=== PATIENT | female | born 1940 | race Caucasian/White ===

== ENCOUNTER 2022-05-10 00:34 | Inpatient (IN) | payer OTHER ==
[~2022-05-10] VITALS: Ht 149.9 cm; Wt 53.5 kg
[2022-05-10 00:38] VITALS: BP 121/58
--- NOTE | 2022-05-10 00:38 | NUR ---
[facility] TO ER BED 02.
[2022-05-10] MEDS ORDERED: NACL 0.9% 1,000 ML IV ONE (00:45)
[2022-05-10] MEDS ORDERED: ACETAMINOPHEN 325 MG TAB PO ONE (00:45)
[2022-05-10] MEDS ORDERED: ACETAMINOPHEN 650 MG SUPP RC ONE ×2 (00:47→00:50)
[2022-05-10 01:06] LABS: BASOPHILS % (AUTO) 0.2 % (0.0-2.0); EOSINOPHILS % (AUTO) 0.1 % (0.0-4.0); HEMATOCRIT 34.3 % (36-48); HEMOGLOBIN 11.6 g/dL (12.0-16.0); LYMPHOCYTES % (AUTO) 27.6 % (20.5-51.1); MEAN CORPUSCULAR HEMOGLOBIN 31 pg (27-31); MEAN CORPUSCULAR HGB CONC 34 g/dL (33-37); MEAN CORPUSCULAR VOLUME 91.5 fL (80-94); MONOCYTES # (AUTO) 0.5 K/uL (0.8-1.0); MONOCYTES % (AUTO) 6.3 % (1.7-9.3); NEUTROPHILS # (AUTO) 4.9 K/uL (1.8-7.7); NEUTROPHILS % (AUTO) 65.8 % (42.2-75.2); PLATELET COUNT (AUTO) 114 K/uL (140-450); RED BLOOD CELL COUNT(AUTO) 3.75 MIL/uL (4.20-5.40); RED CELL DISTRIBUTION WIDTH 13.1 % (11.6-13.7); WHITE BLOOD COUNT (AUTO) 7.4 K/uL (4.8-10.8)
[2022-05-10 01:20] LABS: ALBUMIN 2.5 g/dL (3.4-5.0); ANION GAP 5.6 (8-16); ASPARTATE AMINOTRANSFERASE 31 U/L (15-37); CARBON DIOXIDE 30.5 mmol/L (21-32); CHLORIDE 103 mmol/L (98-107); CREATININE 0.8 mg/dL (0.6-1.3); GLUCOSE 136 mg/dL (74-106); POTASSIUM 4.1 mmol/L (3.5-5.1); SODIUM SERUM 135 mmol/L (136-145); TOTAL BILIRUBIN 0.5 mg/dL (0.0-1.0); UREA NITROGEN, BLOOD 15 mg/dL (7-18)
[2022-05-10 01:27] LABS: APPEARANCE,URINE CLEAR (CLEAR); BILIRUBIN,URINE NEGATIVE (NEGATIVE); BLOOD, URINE TRACE-I (NEGATIVE); COLOR,URINE YELLOW (YELLOW); LEUKOCYTE ESTERASE ,URINE NEGATIVE (NEGATIVE); NITRITE, URINE NEGATIVE (NEGATIVE); UGLUCOSE NEGATIVE (NEGATIVE)
[2022-05-10 01:31] LABS: RBC,URINE 0-5 /HPF (0-5); WBC,URINE 0-5 /HPF (0-5)
[2022-05-10] MEDS ORDERED: cefTRIAXone 1,000 MG VIAL ONE (01:38)
[2022-05-10] MEDS ORDERED: MORPHINE SULFATE 2 MG/ML SYR IVP PRN ×2 (01:50→07:40)
[2022-05-10 02:00] LABS: PROTHROMBIN TIME 11.3 secs (10.8-13.4)
[2022-05-10] MEDS ORDERED: GABA400C PO (02:40)
[2022-05-10] MEDS ORDERED: SYN.1 PO (02:40)
[2022-05-10] MEDS ORDERED: FLUO10CA21 PO (02:40)
--- NOTE | 2022-05-10 03:00 | NUR ---
RECEIVED PT FROM ER NURSE VIA GUILLERMINA. CAME IN WITH ALOC, PIV ON RFA 20 G INTACT AND PATENT, NO COMPLAIN OF PAIN OR SOB NOTED.
--- NOTE | 2022-05-10 03:12 | NUR ---
Patient will be admitted to care of Dr. Baron. Admited to med surg. Will go to room 106 A. Belongings list completed. Report to WILDER Gannon.
[2022-05-10 04:00] VITALS: BP 149/77
--- NOTE | 2022-05-10 06:00 | NUR ---
CLEANED AND REPOSITIONED,TOLERATED WELL NO SOB NOTED
[2022-05-10] MEDS ORDERED: ZOLPIDEM 10 MG TAB PO PRN (07:40)
[2022-05-10] MEDS ORDERED: ONDANSETRON 4 MG/2 ML VIAL IVP PRN (07:40)
[2022-05-10] MEDS ORDERED: MAG SULF 2000 MG/WATER PREMIX 50 ML IV PRN (07:40)
[2022-05-10] MEDS ORDERED: POTASSIUM CHLORIDE 10 MEQ TABER PO PRN (07:40)
[2022-05-10] MEDS ORDERED: ACETAMINOPHEN 325 MG TAB PO PRN (07:40)
[2022-05-10] MEDS ORDERED: LORazepam 2 MG/ML VIAL IVP PRN (07:40)
[2022-05-10] MEDS ORDERED: DOCUSATE SODIUM 100 MG GELCAP PO PRN (07:40)
[2022-05-10 08:00] VITALS: BP 145/72
[2022-05-10] MEDS: FLUoxetine 10 MG CAP PO SCH (08:59)
[2022-05-10] MEDS: LEVOTHYROXINE 0.1 MG TAB PO SCH (09:00)
[2022-05-10] MEDS: GABAPENTIN 300 MG CAP PO SCH (09:00)
--- NOTE | 2022-05-10 10:11 | NUR ---
PATIENT HAS BEEN SCREENED AND CATEGORIZED MODERATE NUTRITION RISK. PATIENT WILL BE SEEN WITHIN 3-5 DAYS OF ADMISSION. 05/10/22-05/15/[address] BY [address] TE[address]
[2022-05-10 12:00] VITALS: BP 110/64
[2022-05-10] MEDS: PIPERACILLIN/TAZOBACTAM 3.375 GM in DEXTROSE 5% 50 ML IV SCH ×3 (13:11→23:49)
--- NOTE | 2022-05-10 13:32 | NUR ---
DC PLANNING PATIENT HX OF DEMENTIA AND IS APHASIC, THEREFORE, SW OUTREACHED TO PATIENT EMERGENCY CONTACT, JASON LOPEZ, HOWEVER, PHONE NUMBER ON FILE IS NOT A WORKING PHONE NUMBER. OUTREACHED TO PT NURSE TO INQUIRE ON ADDITIONAL NUMBER THAT MAY HAVE BEEN LEFT. NURSE REPORTS NO ALTERNATIVE NUMBER ON HAND. NURSE REPORTS WAS AT BEDSIDE EARLY THIS MORNING. SW REQUESTED IF FAMILY AT BEDSIDE TO CALL SW OR TO OBTAIN A WORKING PHONE NUMBER FROM FAMILY, NURSE AGREED.
[2022-05-10 16:00] VITALS: BP 139/66
[2022-05-10] MEDS ORDERED: ALBUTEROL SULFATE/IPRATROPIU 3 ML SOL IH PRN (19:00)
--- NOTE | 2022-05-10 19:40 | NUR ---
RECEIVED REPORT AT BEDSIDE.PT IS ON THE BED WITH NO DISTRESS.RESP.UNLABORED W/O2 AT 2L/NC.IV SITE IS INFILTRATED WILL CHANGE THE SITE.FAMILY AT BEDSIDE.WILL CONTINUE MONITORING.
[2022-05-10 20:00] VITALS: BP 140/62
--- NOTE | 2022-05-10 20:53 | NUR ---
PT SLEEPING COMFOORTABLY ON 2LNC W/ NO DISTRESS NOTED WILL CONTINUE TO MONITOR
--- NOTE | 2022-05-11 01:40 | NUR ---
PT SLEEPING.NO PRESP.DISTRESS NOTED.
[2022-05-11 04:00] VITALS: BP 120/70
[2022-05-11] MEDS: PIPERACILLIN/TAZOBACTAM 3.375 GM in DEXTROSE 5% 50 ML IV SCH ×3 (06:03→17:16)
--- NOTE | 2022-05-11 06:32 | NUR ---
SLEPT WELL.NO S/S OF ANY DISTRESS NOTED.CONDITION STABLE.
--- NOTE | 2022-05-11 07:20 | NUR ---
RECEIVED BEDSIDE REPORT FROM CHARLOTTE BOOK BINDER RN, FOR CONTINUITY OF CARE. PT A/OX0, NO VERBAL RESPONSE. WITHDRAWS TO STERNAL RUB BUT DOES NOT OPEN EYES. 22G IV TO R HAND INFUSING NS TKO. NO EDEMA TO EXTREMITIES. GENERALIZED WEAKNESS. STANDARD PRECAUTION. CALL LIGHT WITHIN REACH, WHEELS LOCKS AND BED IN LOWEST POSITION.
[2022-05-11 07:22] LABS: ANION GAP 7.3 (8-16); CARBON DIOXIDE 27.4 mmol/L (21-32); CHLORIDE 104 mmol/L (98-107); CREATININE 0.7 mg/dL (0.6-1.3); GLUCOSE 114 mg/dL (74-106); POTASSIUM 3.7 mmol/L (3.5-5.1); SODIUM SERUM 135 mmol/L (136-145); UREA NITROGEN, BLOOD 14 mg/dL (7-18)
[2022-05-11 07:26] LABS: BASOPHILS % (AUTO) 0.3 % (0.0-2.0); EOSINOPHILS % (AUTO) 0.1 % (0.0-4.0); HEMATOCRIT 33.6 % (36-48); LYMPHOCYTES # (AUTO) 2.3 K/uL (2.5-16.5); LYMPHOCYTES % (AUTO) 27.1 % (20.5-51.1); MEAN CORPUSCULAR HEMOGLOBIN 30 pg (27-31); MEAN CORPUSCULAR HGB CONC 33 g/dL (33-37); MEAN CORPUSCULAR VOLUME 91.1 fL (80-94); MONOCYTES # (AUTO) 0.6 K/uL (0.8-1.0); MONOCYTES % (AUTO) 7.7 % (1.7-9.3); NEUTROPHILS # (AUTO) 5.4 K/uL (1.8-7.7); NEUTROPHILS % (AUTO) 64.8 % (42.2-75.2); PLATELET COUNT (AUTO) 118 K/uL (140-450); RED BLOOD CELL COUNT(AUTO) 3.69 MIL/uL (4.20-5.40); RED CELL DISTRIBUTION WIDTH 12.3 % (11.6-13.7); WHITE BLOOD COUNT (AUTO) 8.4 K/uL (4.8-10.8)
[2022-05-11 08:00] VITALS: BP_SYST 123; BP_SYST 134; BP_DIAS 62; BP_DIAS 72
--- NOTE | 2022-05-11 08:36 | NUR ---
@740 PT COMFORTABLE ASLEEP NO DISTRESS NOTED WILL CONT MONITORED
[2022-05-11] MEDS: LEVOTHYROXINE 0.1 MG TAB PO SCH ×2 (09:00→09:53)
[2022-05-11] MEDS: FLUoxetine 10 MG CAP PO SCH ×2 (09:00→09:53)
[2022-05-11] MEDS: GABAPENTIN 300 MG CAP PO SCH ×2 (09:00→09:53)
--- NOTE | 2022-05-11 10:00 | NUR ---
AT BEDSIDE. UPDATED ON POC. ALL QUESTIONS ANSWERED.
--- NOTE | 2022-05-11 10:10 | NUR ---
AT BEDSIDE. PT MOMENTARILY OPENS EYES THEN CLOSES. NODS YES/NO TO QUESTIONS SPOKEN IN GERMAN. COUGHS WHEN GIVEN WATER, LIKELY UNABLE TO PROTECT AIRWAY. MESSAGED Kade MCLEOD TO NOTIFY, ORDERS TO HOLD MEALS FOR NOW AND HOLD PO GABAPENTIN AND PROZAC. WILL CONTINUE LEVOTHYROXINE IV AFTER TSH RESULTS TOMORROW MORNING.
[2022-05-11] MEDS ORDERED: LEVOTHYROXINE SODIUM 100 MCG VIAL IV SCH (10:30)
--- NOTE | 2022-05-11 10:31 | NUR ---
DR CROSS ORDERED TO HOLD SCHEDULED LEVOTHYROXINE UNTIL TSH LEVELS ARE TESTED, WHICH IS ORDERED FOR TOMORROW MORNING.
--- NOTE | 2022-05-11 10:35 | NUR ---
SPOKE TO DAUGHTER ON THE PHONE AND UPDATED ON PLAN OF CARE. ALL QUESTIONS ANSWERED.
--- NOTE | 2022-05-11 11:30 | NUR ---
RT ATTEMPTED TO GET ABG AND WAS UNSUCCESSFUL AFTER TWO TIMES. WILL WAIT FOR ASSISTANCE FROM ANOTHER RT WHEN AVAILABLE. PT HAS ALOC AND SLEEPING WHILE TRYING TO GET ABG. RN AWARE .
[2022-05-11 12:00] VITALS: BP 127/71
--- NOTE | 2022-05-11 13:30 | NUR ---
RT AT BEDSIDE TO GIVE BREATHING TX. Addendum: 05/11/22 at 1805 by Bella Bauman RN TIME SHOULD BE 1520
--- NOTE | 2022-05-11 14:11 | NUR ---
MESSAGESanford CROSS FOR ORDERS FOR SWALLOW EVALUATION.
--- NOTE | 2022-05-11 15:20 | NUR ---
DAUGHTER AND QUESTIONED ABOUT WITHHOLDING FEEDING, THEY ARE AWARE THERE IS A PENDING SWALLOW EVAL, FURTHER QUESTIONS WERE DIRECTED TO THE NURSE. PRN TREATMENT WAS GIVEN DUE TO FAMILYS REQUEST. PT WAS LEFT IN NO DISTRESS. WILL CONT TO MONITOR.
[2022-05-11 16:00] VITALS: BP_SYST 124; BP_SYST 133; BP_DIAS 56; BP_DIAS 79
--- NOTE | 2022-05-11 19:18 | NUR ---
ENDORSED BEDSIDE REPORT TO KILO SHEA FOR CONTINUITY OF CARE.
--- NOTE | 2022-05-11 20:04 | NUR ---
PATIENT AWAKE WELL RESTED WITH O2 AT 2L NC TOLERATING WELL. NO S/S OF RESPIRATORY DISTRESS. BREATHING REGULAR NON LABORED. FLACC 0. IV ACCESS ON THE RIGHT HAND INTACT AND PATENT SALINE LOCK. CALL LIGHT WITHIN REACH. ALL SAFETY PRECAUTIONS ARE IN PLACE.
[2022-05-12 04:00] VITALS: BP 107/67
[2022-05-12] MEDS: PIPERACILLIN/TAZOBACTAM 3.375 GM in DEXTROSE 5% 50 ML IV SCH ×5 (05:15→18:56)
--- NOTE | 2022-05-12 05:15 | NUR ---
ADMINISTERED SCHEDULED MEDICATION ORDERED.
--- NOTE | 2022-05-12 07:11 | NUR ---
BEDSIDE REPORT GIVEN TO DAY SHIFT NURSE NETO FOR CONTINUITY OF CARE.
[2022-05-12 07:13] LABS: CARBON DIOXIDE 27.6 mmol/L (21-32); CHLORIDE 104 mmol/L (98-107); CREATININE 0.8 mg/dL (0.6-1.3); GLUCOSE 158 mg/dL (74-106); POTASSIUM 3.6 mmol/L (3.5-5.1); SODIUM SERUM 134 mmol/L (136-145); UREA NITROGEN, BLOOD 18 mg/dL (7-18)
[2022-05-12 07:26] LABS: BASOPHILS % (AUTO) 0.4 % (0.0-2.0); HEMOGLOBIN 11.2 g/dL (12.0-16.0); LYMPHOCYTES # (AUTO) 2.1 K/uL (2.5-16.5); LYMPHOCYTES % (AUTO) 22.1 % (20.5-51.1); MEAN CORPUSCULAR HEMOGLOBIN 30 pg (27-31); MEAN CORPUSCULAR HGB CONC 33 g/dL (33-37); MEAN CORPUSCULAR VOLUME 90.9 fL (80-94); MONOCYTES # (AUTO) 0.6 K/uL (0.8-1.0); MONOCYTES % (AUTO) 6.5 % (1.7-9.3); NEUTROPHILS # (AUTO) 6.7 K/uL (1.8-7.7); PLATELET COUNT (AUTO) 137 K/uL (140-450); RED BLOOD CELL COUNT(AUTO) 3.74 MIL/uL (4.20-5.40); RED CELL DISTRIBUTION WIDTH 12.5 % (11.6-13.7); WHITE BLOOD COUNT (AUTO) 9.5 K/uL (4.8-10.8)
[2022-05-12 08:00] VITALS: BP 142/65
--- NOTE | 2022-05-12 08:00 | NUR ---
RECEIVE ENDORSEMENT FROM PM SHIFT NURSE THAT PATIENT HERE FOR PNEUMONIA D/T ALOC W/ FEVER, COUGH FROM HOME. PATIENT HAS HX OF ENCEPHALOPATHY/BRAIN ANEURYSM W/ CVA W/ DYSPHAGIA ABOUT 2 YEARS AGO AND CURRENT HAS SWALLOW PROBLEM. PIV AT R.HAND 22G. PCP AWARE THAT PATIENT IS NPO, D5NS INFUSING AT 50ML/HR. WILL CONTINUE TO MONITOR Addendum: 05/12/22 at 1440 by Rossy Ledbetter RN TRANSFER PATIENT TO ICU AFTER HEAD CT DONE AND FOUND PATIENT "Intraparenchymal hemorrhage measuring approximately 3.7 x 3.4 cm in the left posterior fossa centered in the left cerebellum with surrounding edema and encephalomalacia. Postoperative changes are also seen in the posterior fossa. Correlation with surgical history is needed. Moderate cerebral and cerebellar volume loss with periventricular and subcortical white matter changes that are nonspecific but likely reflect long-standing systemic hypertension and/or chronic ischemic small vessel disease. Moderate intracranial atherosclerosis. Inflammatory sinus disease." REPORT GIVEN & TRANSFER DONE
[2022-05-12] MEDS ORDERED: DEXT 5% /NACL 0.9% 1,000 ML IV SCH (08:10)
[2022-05-12] MEDS ORDERED: LEVOTHYROXINE 0.1 MG TAB PO SCH (09:00)
[2022-05-12] MEDS ORDERED: OSMITROL 25% 12.5 GM/50 ML VIAL IV SCH (14:20)
--- NOTE | 2022-05-12 14:41 | NUR ---
RECEIVED REPORT FROM WILDER DUQUE FOR CONTINUITY OF CARE. PT PLACED ON CONTINUOUS MONITORING. A/OX0. NONVERBAL. WITHDRAWALS TO STERNAL RUB. GRIMACES AND FROWNS. DOES NOT MAKE EYE CONTACT. PUPILS 4MM, SLUGGISH RESPONSE TO LIGHT. 2L NC. RESPIRATIONS EVEN AND UNLABORED. LUNG SOUNDS COARSE AND DIMINISHED. SR ON MONITOR. 22G IV TO R HAND INFUSING D5NS AT 50ML/HR. BOWEL SOUNDS HYPOACTIVE. ABDOMEN SOFT AND FLAT. NPO. GENERALIZED WEAKNESS. STANDARD PRECAUTION. BED LOCKED AND IN LOWEST POSITION.
[2022-05-12 14:45] VITALS: BP 140/69
--- NOTE | 2022-05-12 15:12 | NUR ---
INSERTED 18G IV TO RAC. GOOD BLOOD RETURN, FLUSHES WELL.
--- NOTE | 2022-05-12 15:20 | NUR ---
ADMITTING DX: PNA; PMHX: DEMENTIA CVA HTN; REVIEWED ABG DATED 05/11/22 COMPENSATED WITH PH 7.40 PCO2 OF 49.0; REVIEWED CXR DATED 05/10/22 IMPRESSION PULMONARY INTERSTITIAL EDEMA, LOW LUNG VOLUMES, SUBSEGMENTAL AIR SPACE DISEASE ATELECTASIS V. INFILTRATES; PATIENT PRESENTING WITH SHALLOW "GASPING/STUTTERING" CHEST RISE ; RESPIRATION 20 BPM; SATURATION 98% ON SUPPLEMENTAL OXYGEN AT 2 LPM VIA NC; LEASE PURCHASE DRIVER TO INTRODUCE HHN THERAPY ORDERED
[2022-05-12] MEDS ORDERED: MANNITOL IV SCH (15:30)
[2022-05-12] MEDS ORDERED: DEXTROSE 5% IV SCH (15:30)
--- NOTE | 2022-05-12 15:30 | NUR ---
MID AND POST HHN THERAPY; PATIENT NOW PRESENTING WITH A "FLUID" CHEST RISE; IMPROVED AERATION APEX TO MID WITH RALES BILATERAL; NO CHANGE IN BILATERAL BASES; RESEARCH SOFTWARE ENGINEER RECOMMENDATION TO ADD SCHEDULED HHN THERAPY
--- NOTE | 2022-05-12 15:33 | NUR ---
AT BEDSIDE. UPDATED ON POC. NO FURTHER QUESTIONS AT THIS TIME.
--- NOTE | 2022-05-12 15:41 | NUR ---
CONSULTED DR. CROSS REGARDING PO LEVOTHYROXINE. FREE T4 ORDERED FOR TOMORROW MORNING. HOLD LEVOTHYROXINE UNTIL FREE T4 RESULTED.
[2022-05-12 16:00] VITALS: BP 139/67
--- NOTE | 2022-05-12 16:30 | NUR ---
SISTER AT BEDSIDE. UPDATED ON POC, ALL QUESTIONS ANSWERED.
[2022-05-12 18:00] VITALS: BP 142/69
[2022-05-12] MEDS ORDERED: ALBUTEROL SULFATE/IPRATROPIU 3 ML SOL IH SCH (19:00)
--- NOTE | 2022-05-12 19:25 | NUR ---
PHONE CALL TO [facility] FOR PTS TRANSFER TO [facility] ROOM 268, QUESTIONS ANSWERED.MADE AWARE PT FOR TRANSFER DUE TO INTRACRANIAL BLEED, PT ON 02NC AT 2LPM AND NO IV DRIPS.
--- NOTE | 2022-05-12 19:30 | NUR ---
ENDORSED BEDSIDE REPORT TO CIRA HDZ FOR CONTINUITY OF CARE
--- NOTE | 2022-05-12 19:40 | NUR ---
REPORT GIVEN TO [facility] ICU NURSE B[place]LEY. UPDATED ON PT, FAMILY CONTACT AND ETA AMBULANCE ARRIVAL TO UNIT.
== END 2022-05-12 20:29 | disposition short-term general hospital (02) | DRG 871 ==
LOC: MED 00:34 → MMU 01:50 → MTU 01:58 → MIC 05-12 14:34
PROVIDERS: ADMIT Family Medicine; ATTEND Family Medicine
DX: A41.9 Sepsis, unspecified organism (principal); G93.41 Metabolic encephalopathy; J18.9 Pneumonia, unspecified organism; J96.01 Acute respiratory failure with hypoxia; E87.1 Hypo-osmolality and hyponatremia; E44.0 Moderate protein-calorie malnutrition; I62.9 Nontraumatic intracranial hemorrhage, unspecified; I10 Essential (primary) hypertension; E11.9 Type 2 diabetes mellitus without complications; F03.90 Unspecified dementia, unspecified severity, without behavioral disturbance, psychotic disturbance, mood disturbance, and anxiety; Z20.822 Contact with and (suspected) exposure to COVID-19; D64.9 Anemia, unspecified; E83.51 Hypocalcemia; E03.9 Hypothyroidism, unspecified; R13.10 Dysphagia, unspecified; Z68.23 Body mass index [BMI] 23.0-23.9, adult; Z79.899 Other long term (current) drug therapy; Z86.73 Personal history of transient ischemic attack (TIA), and cerebral infarction without residual deficits
CPT/HCPCS: 36415; 36600; 70450; 71045; 80048; 80053; 81001; 83605; 83735; 83880; 84443; 85025; 85610; 85730; 87040; 87081; 93005; 94640; 96361; 96365; 96374; 99285; J0696; J2150; J2543; J7060; Q0092